=== PATIENT | female | born 1955 | race Caucasian/White ===

== ENCOUNTER 2024-03-18 18:27 | Emergency (ER) | payer OTHER ==
[~2024-03-18] VITALS: Ht 152.4 cm; Wt 45.0 kg
[2024-03-18 21:14] LABS: Basophils # (auto) 0.1 10 ^3/uL (0-0.2); Basophils % (auto) 0.8 % (0.0-2.0); Eosinophils # (auto) 0.1 10 ^3/uL (0-0.8); Eosinophils % (auto) 2.3 % (0.0-7.0); Hematocrit 39.4 % (36.0-46.0); Hemoglobin 12.9 g/dL (12.2-16.2); Lymphocytes # (auto) 1.7 10 ^3/uL (0.4-5.4); Lymphocytes % (auto) 26.7 % (10.0-50.0); Mean Corpuscular Hemoglobin 28.3 pg (28.0-32.0); Mean Corpuscular Hgb Conc. 32.8 g/dL (32.0-36.0); Mean Corpuscular Volume 86.1 fL (80.0-100.0); Monocytes # (auto) 0.6 10 ^3/uL (0-1.3); Monocytes % (auto) 9.5 % (0.0-12.0); Neutrophils # (auto) 3.9 10 ^3/uL (1.6-8.6); Neutrophils % (auto) 60.7 % (37.0-80.0); Red Blood Cells 4.57 10^6/uL (4.0-5.20); Red Cell Distribution Width 14.5 % (11.8-14.3); White Blood Cell 6.5 10^3/uL (4.4-10.8)
[2024-03-18 21:31] LABS: Chloride 103 mmol/L (98-107); Sodium 140 mmol/L (136-145)
[2024-03-18 21:32] LABS: Anion Gap 8 (5-15); Carbon Dioxide 29 mmol/L (20-30)
[2024-03-18 21:33] LABS: Calcium 9.9 mg/dL (8.7-10.4)
[2024-03-18 21:37] LABS: Glucose 108 mg/dL (74-106)
[2024-03-18 21:38] LABS: BUN/Creatinine Ratio 16.7 (10.0-20.0); Blood Urea Nitrogen 13 mg/dL (9-23)
[2024-03-18 23:14] VITALS: BP 158/88; PULSE 72; RESP 16; O2SAT 100
== END 2024-03-18 23:16 | disposition home or self-care (01) ==
LOC: ER 18:27
DX: K29.70 Gastritis, unspecified, without bleeding (principal); Z88.6 Allergy status to analgesic agent
CPT/HCPCS: 36415; 74176; 80048; 85025